=== PATIENT | female | born 2000 | race Two or more races ===

== ENCOUNTER 2023-12-12 14:13 | Inpatient (IN) | payer MEDICAID, OTHER ==
[~2023-12-12] VITALS: Ht 175.3 cm; Wt 129.4 kg
[2023-12-12 15:01] LABS: Basophils # (auto) 0.1 10 ^3/uL (0-0.2); Basophils % (auto) 0.7 % (0.0-2.0); Eosinophils # (auto) 0.2 10 ^3/uL (0-0.8); Eosinophils % (auto) 2.4 % (0.0-7.0); Hematocrit 39.9 % (36.0-46.0); Hemoglobin 13.7 g/dL (12.2-16.2); Lymphocytes % (auto) 38.9 % (10.0-50.0); Mean Corpuscular Hemoglobin 29.3 pg (28.0-32.0); Mean Corpuscular Hgb Conc. 34.2 g/dL (32.0-36.0); Mean Corpuscular Volume 85.7 fL (80.0-100.0); Monocytes # (auto) 0.5 10 ^3/uL (0-1.3); Monocytes % (auto) 6.3 % (0.0-12.0); Neutrophils % (auto) 51.7 % (37.0-80.0); Nucleated Red Blood Cells % 0.1 %; Red Blood Cells 4.66 10^6/uL (4.0-5.20); Red Cell Distribution Width 12.9 % (11.8-14.3); White Blood Cell 7.7 10^3/uL (4.4-10.8)
[2023-12-12 15:09] LABS: Alanine Aminotransferase 117 U/L (7-40); Albumin 4.4 g/dL (3.2-4.8); Alkaline Phosphatase 201 U/L (46-116); Anion Gap 8 (5-15); Aspartate Aminotransferase 119 U/L (13-40); BUN/Creatinine Ratio 8.3 (10.0-20.0); Bilirubin, Total 0.8 mg/dL (0.2-1.0); Blood Urea Nitrogen 6 mg/dL (9-23); Calcium 10.1 mg/dL (8.7-10.4); Carbon Dioxide 27 mmol/L (20-30); Chloride 105 mmol/L (98-107); Glucose 96 mg/dL (74-106); Lipase 66 U/L (12-53); Potassium 4.2 mmol/L (3.5-5.1); Sodium 140 mmol/L (136-145)
[2023-12-12] MEDS: MORPHINE SULFATE 4 MG/ML SYR/VIAL IV ONE ×2 (15:45→20:26)
[2023-12-12] MEDS: SODIUM CHLORIDE 0.9% 1,000 ML IVB ONE (16:02)
[2023-12-12] MEDS: ONDANSETRON HCL 4 MG/2 ML VIAL IV ONE ×2 (16:02→20:00)
[2023-12-12 16:26] LABS: Urine Bacteria None Seen /hpf (None Seen)
[2023-12-12 16:29] VITALS: PULSE 81; RESP 16; O2SAT 96
[2023-12-12 16:35] LABS: Urine Blood Negative /uL (Negative); Urine Clarity Clear (Clear); Urine Color Yellow (Yellow); Urine Mucus FEW (None Seen); Urine Protein, UAD TRACE (Negative); Urine Specific Gravity 1.022 (1.001-1.035); Urine Urobilinogen 3 mg/dL (Negative); Urine WBC 2 /hpf (0 - 5)
[2023-12-12 20:00] VITALS: PULSE 68; RESP 13; O2SAT 99
[2023-12-12] MEDS ORDERED: ACETAMINOPHEN 325 MG TAB PO PRN (21:00)
[2023-12-13 04:14] LABS: Hematocrit 37.5 % (36.0-46.0); Mean Corpuscular Hemoglobin 29.8 pg (28.0-32.0); Mean Corpuscular Hgb Conc. 34.6 g/dL (32.0-36.0); Red Blood Cells 4.35 10^6/uL (4.0-5.20); Red Cell Distribution Width 12.8 % (11.8-14.3); White Blood Cell 4.2 10^3/uL (4.4-10.8)
[2023-12-13 04:17] LABS: Basophils % (manual) 0 (0.0-2.0); Blast Cells 0; Metamyelocytes % 0; Myelocytes % 0; Promyelocytes % 0; Reactive Lymphocytes 0
[2023-12-13 04:31] LABS: Alanine Aminotransferase 450 U/L (7-40); Albumin 4.1 g/dL (3.2-4.8); Alkaline Phosphatase 219 U/L (46-116); Anion Gap 6 (5-15); Aspartate Aminotransferase 647 U/L (13-40); Bilirubin, Total 1.4 mg/dL (0.2-1.0); Calcium 9.6 mg/dL (8.7-10.4); Carbon Dioxide 25 mmol/L (20-30); Chloride 109 mmol/L (98-107); Glucose 85 mg/dL (74-106); Potassium 3.8 mmol/L (3.5-5.1); Sodium 140 mmol/L (136-145); Total Protein 6.7 g/dL (5.7-8.2)
[2023-12-13 04:40] LABS: BUN/Creatinine Ratio 8.2 (10.0-20.0); Blood Urea Nitrogen < 5 mg/dL (9-23)
[2023-12-13 06:05] LABS: Band Neutrophils % (manual) 1; Eosinophils % (manual) 1 (0-7); Lymphocytes % (manual) 62 (10.0-50.0); Monocytes % (manual) 8 (0-12); Platelet Estimate Adequate; RBC Morphology Normal
[2023-12-13 07:29] VITALS: PULSE 72; RESP 17; O2SAT 99
[2023-12-13] MEDS: HYDROcodone-ACET 5/325MG TAB PO PRN (07:29)
[2023-12-13 10:11] LABS: Amphetamine Screen, Urine Neg (NEGATIVE)
[2023-12-13 10:12] LABS: Barbiturate Scree,Urine Neg (NEGATIVE); Benzodiazephine Screen, Urine Neg (NEGATIVE); Cannabinoid Screen, Urine Neg (NEGATIVE); Cocaine Screen, Urine Neg (NEGATIVE); Opiate Scree,Urine Neg (NEGATIVE); Phencyclidine Screen, Urine Neg (NEGATIVE)
[2023-12-13 10:24] VITALS: BP 108/62; PULSE 76; PULSE 79; RESP 16; RESP 18; TEMP 97.6; O2SAT 97; O2SAT 99
[2023-12-13 10:34] LABS: INR 1.04 (0.9-1.15); Partial Thromboplastin Time 23.9 SEC (24.5-34.5)
[2023-12-13 10:38] VITALS: BP 95/63; PULSE 79; RESP 16; TEMP 97.9; O2SAT 97
[2023-12-13] MEDS ORDERED: NORPTMEDS PO (10:54)
[2023-12-13 12:01] LABS: Bilirubin, Direct 0.9 mg/dL (<0.3)
[2023-12-13 12:17] LABS: Hepatitis B Surface Antigen Negative (Negative)
[2023-12-13] MEDS: PANTOPRAZOLE 40 MG/10 ML VIAL INJ IV ONE (12:31)
[2023-12-13 12:37] LABS: Hepatitis A Ab IgM Negative
[2023-12-13 12:38] LABS: Hepatitis B Core IgM Negative; Hepatitis C Antibody Negative (Negative)
[2023-12-13 13:00] VITALS: BP 108/62; PULSE 46; RESP 18; TEMP 97.6; O2SAT 99
[2023-12-13] MEDS: ERGOCALCIFEROL 50,000 UNIT(1.25MG) CAP PO SCH (20:56)
[2023-12-13 21:00] VITALS: BP 100/57; PULSE 60; RESP 16; TEMP 97.9; O2SAT 98
[2023-12-14 05:00] VITALS: BP 105/66; PULSE 76; RESP 16; TEMP 98; O2SAT 96
[2023-12-14 06:16] LABS: Hematocrit 36.8 % (36.0-46.0); Hemoglobin 12.7 g/dL (12.2-16.2); Mean Corpuscular Hemoglobin 29.9 pg (28.0-32.0); Mean Corpuscular Hgb Conc. 34.6 g/dL (32.0-36.0); Mean Corpuscular Volume 86.4 fL (80.0-100.0); Red Blood Cells 4.26 10^6/uL (4.0-5.20)
[2023-12-14 06:21] LABS: Chloride 107 mmol/L (98-107); Potassium 3.8 mmol/L (3.5-5.1); Sodium 140 mmol/L (136-145)
[2023-12-14 06:22] LABS: Anion Gap 12 (5-15); Carbon Dioxide 21 mmol/L (20-30)
[2023-12-14 06:23] LABS: Calcium 9.6 mg/dL (8.7-10.4)
[2023-12-14 06:27] LABS: Glucose 78 mg/dL (74-106)
[2023-12-14 06:31] LABS: BUN/Creatinine Ratio 7.9 (10.0-20.0); Blood Urea Nitrogen < 5 mg/dL (9-23)
[2023-12-14 06:36] LABS: Band Neutrophils % (manual) 0; Blast Cells 0; Metamyelocytes % 0; Myelocytes % 0; Promyelocytes % 0; Reactive Lymphocytes 0
[2023-12-14 07:55] LABS: Alanine Aminotransferase 501 U/L (7-40); Albumin 3.8 g/dL (3.2-4.8); Alkaline Phosphatase 230 U/L (46-116); Anion Gap 6 (5-15); Aspartate Aminotransferase 414 U/L (13-40); BUN/Creatinine Ratio 7.8 (10.0-20.0); Bilirubin, Total 1.6 mg/dL (0.2-1.0); Blood Urea Nitrogen 5 mg/dL (9-23); Calcium 9.5 mg/dL (8.5-10.1); Carbon Dioxide 25 mmol/L (20-30); Chloride 108 mmol/L (98-107); Glucose 77 mg/dL (74-106); Potassium 3.8 mmol/L (3.5-5.1); Sodium 139 mmol/L (136-145); Total Protein 6.3 g/dL (5.7-8.2)
[2023-12-14 08:00] VITALS: BP 99/69; PULSE 65; RESP 16; TEMP 98; O2SAT 97
[2023-12-14 08:34] LABS: Basophils % (manual) 1 (0.0-2.0); Eosinophils % (manual) 3 (0-7); Lymphocytes % (manual) 54 (10.0-50.0); Monocytes % (manual) 7 (0-12); Platelet Estimate Adequate
[2023-12-14] MEDS: PANTOPRAZOLE 40 MG/10 ML VIAL INJ IV SCH (09:15)
[2023-12-14] MEDS: SODIUM CHLORIDE 0.9% 1,000 ML IV SCH (09:30)
[2023-12-14] MEDS: ENOXAPARIN SOD 40 MG/0.4 ML SYRINGE SC SCH (10:49)
[2023-12-14 12:00] VITALS: BP 103/61; PULSE 65; RESP 16; TEMP 98; O2SAT 97
[2023-12-14 17:00] VITALS: BP 98/58; PULSE 65; RESP 16; TEMP 98.1; O2SAT 99
[2023-12-14] MEDS: CIPROFLOXACIN HCL 500 MG TAB PO SCH (17:39)
[2023-12-14 21:00] VITALS: BP 101/59; PULSE 59; RESP 20; TEMP 98.2; O2SAT 98
[2023-12-15 01:00] VITALS: BP 103/57; PULSE 62; RESP 20; TEMP 97.9; O2SAT 97
[2023-12-15 05:00] VITALS: BP 106/62; PULSE 64; RESP 20; TEMP 98.3; O2SAT 96
[2023-12-15 06:45] LABS: Alanine Aminotransferase 413 U/L (7-40); Albumin 3.7 g/dL (3.2-4.8); Alkaline Phosphatase 247 U/L (46-116); Anion Gap 8 (5-15); Aspartate Aminotransferase 264 U/L (13-40); Calcium 9.3 mg/dL (8.5-10.1); Carbon Dioxide 23 mmol/L (20-30); Chloride 107 mmol/L (98-107); Glucose 76 mg/dL (74-106); Potassium 3.6 mmol/L (3.5-5.1); Sodium 138 mmol/L (136-145)
[2023-12-15 06:46] LABS: Bilirubin, Total 1.7 mg/dL (0.2-1.0); Total Protein 6.2 g/dL (5.7-8.2)
[2023-12-15 06:54] LABS: BUN/Creatinine Ratio 8.9 (10.0-20.0); Blood Urea Nitrogen < 5 mg/dL (9-23)
[2023-12-15 08:38] VITALS: BP 105/59; PULSE 61; RESP 20; TEMP 97.9; O2SAT 95
[2023-12-15 12:53] VITALS: BP 104/67; PULSE 60; RESP 20; TEMP 98; O2SAT 98
[2023-12-15 13:08] LABS: Anti-Nuclear Antibody Direct Negative (Negative)
[2023-12-15] MEDS: ONDANSETRON HCL 4 MG/2 ML VIAL IV PRN (16:48)
[2023-12-15 17:23] VITALS: BP 105/66; PULSE 71; RESP 20; TEMP 98.2; O2SAT 96
[2023-12-15 21:00] VITALS: BP 117/70; PULSE 73; RESP 20; TEMP 98.2; O2SAT 95
[2023-12-16] VITALS (7 sets, daily range): BP systolic 96–125; BP diastolic 56–67; PULSE 66–94; RESP 18–20; TEMP 98–98.6; O2SAT 95–98
[2023-12-16 05:59] LABS: Hemoglobin 12.5 g/dL (12.2-16.2); Mean Corpuscular Hgb Conc. 34.8 g/dL (32.0-36.0); Mean Corpuscular Volume 86.4 fL (80.0-100.0); Red Blood Cells 4.17 10^6/uL (4.0-5.20); Red Cell Distribution Width 12.7 % (11.8-14.3); White Blood Cell 4.3 10^3/uL (4.4-10.8)
[2023-12-16 06:01] LABS: Band Neutrophils % (manual) 0; Basophils % (manual) 0 (0.0-2.0); Blast Cells 0; Metamyelocytes % 0; Myelocytes % 0; Promyelocytes % 0; Reactive Lymphocytes 0
[2023-12-16 06:05] LABS: INR 1.08 (0.9-1.15); Partial Thromboplastin Time 26.8 SEC (24.5-34.5); Prothrombin Time 11.4 sec (9.3-11.8)
[2023-12-16 06:17] LABS: Alanine Aminotransferase 299 U/L (7-40); Albumin 3.7 g/dL (3.2-4.8); Alkaline Phosphatase 225 U/L (46-116); Anion Gap 10 (5-15); Aspartate Aminotransferase 104 U/L (13-40); Calcium 9.3 mg/dL (8.5-10.1); Carbon Dioxide 23 mmol/L (20-30); Chloride 106 mmol/L (98-107); Glucose 75 mg/dL (74-106); Potassium 3.6 mmol/L (3.5-5.1); Sodium 139 mmol/L (136-145)
[2023-12-16 06:18] LABS: Bilirubin, Total 0.8 mg/dL (0.2-1.0); Total Protein 6.1 g/dL (5.7-8.2)
[2023-12-16 06:22] LABS: BUN/Creatinine Ratio 8.2 (10.0-20.0); Blood Urea Nitrogen < 5 mg/dL (9-23)
[2023-12-16 07:44] LABS: Eosinophils % (manual) 1 (0-7); Lymphocytes % (manual) 42 (10.0-50.0); Monocytes % (manual) 14 (0-12); Platelet Estimate Adequate; Smudge Cells 1 /100 WBC
[2023-12-16 16:23] LABS: Magnesium 1.6 mg/dL (1.6-2.6)
[2023-12-16 16:25] LABS: Phosphorus 4.6 mg/dL (2.4-5.1)
[2023-12-17] VITALS (8 sets, daily range): BP systolic 99–114; BP diastolic 48–72; PULSE 72–123; RESP 16–20; TEMP 97.5–98.3; O2SAT 96–99
[2023-12-17 05:38] LABS: Hematocrit 36.9 % (36.0-46.0); Hemoglobin 12.5 g/dL (12.2-16.2); Mean Corpuscular Hemoglobin 29.5 pg (28.0-32.0); Mean Corpuscular Hgb Conc. 33.7 g/dL (32.0-36.0); Mean Corpuscular Volume 87.5 fL (80.0-100.0); Red Blood Cells 4.22 10^6/uL (4.0-5.20); Red Cell Distribution Width 13.1 % (11.8-14.3); White Blood Cell 4.9 10^3/uL (4.4-10.8)
[2023-12-17 05:51] LABS: Band Neutrophils % (manual) 0; Basophils % (manual) 0 (0.0-2.0); Blast Cells 0; Eosinophils % (manual) 0 (0-7); Metamyelocytes % 0; Myelocytes % 0; Promyelocytes % 0; Reactive Lymphocytes 0
[2023-12-17 05:52] LABS: Anion Gap 13 (5-15); Carbon Dioxide 20 mmol/L (20-30); Chloride 105 mmol/L (98-107); Sodium 138 mmol/L (136-145)
[2023-12-17 05:53] LABS: Calcium 9.5 mg/dL (8.7-10.4)
[2023-12-17 05:58] LABS: BUN/Creatinine Ratio 8.1 (10.0-20.0); Blood Urea Nitrogen 5 mg/dL (9-23); Glucose 59 mg/dL (74-106)
[2023-12-17 06:18] LABS: Lymphocytes % (manual) 64 (10.0-50.0); Monocytes % (manual) 4 (0-12); Platelet Estimate Adequate
[2023-12-17 12:06] LABS: Actin (Smooth Muscle) Antibody 5 Units (0-19)
[2023-12-17] MEDS: ceFAZolin 2 GM/D5W50ml 50 ML IV ONE (14:58)
[2023-12-17] MEDS ORDERED: fentaNYL CITRATE 100 MCG/2 ML VL ONE (16:04)
[2023-12-17] MEDS ORDERED: MEPERIDINE HCL (50 MG/ML) 1 ML VIAL ONE (16:04)
[2023-12-17] MEDS ORDERED: MIDAZOLAM HCL 2MG/2ML 2ml VIAL (1mg/ml) ONE (16:04)
[2023-12-17] MEDS: LIDOCAINE 2% JELLY 11ml (GLYDO) ONE (16:08)
[2023-12-17] MEDS ORDERED: DexAMETHasone SOD PHOS 10MG/1ML VIAL INJ ONE (16:30)
[2023-12-17] MEDS ORDERED: PROPOFOL 10 MG/ML 20 ML IV ONE (16:30)
[2023-12-17] MEDS ORDERED: ONDANSETRON HCL 4 MG/2 ML VIAL ONE (16:31)
[2023-12-17] MEDS ORDERED: ONDANSETRON HCL 4 MG/2 ML VIAL IV PRN (17:00)
[2023-12-17] MEDS ORDERED: HYDROmorphone HCL 2 MG/ML VL/or syr IV PRN (17:00)
[2023-12-17] MEDS ORDERED: ONDANSETRON HCL 4 MG/2 ML VIAL IV ONE (17:30)
[2023-12-17] MEDS ORDERED: MORPHINE SULFATE 4 MG/ML SYR/VIAL IV PRN (17:30)
[2023-12-17] MEDS ORDERED: MIDAZOLAM HCL 2MG/2ML 2ml VIAL (1mg/ml) IV PRN (17:30)
[2023-12-17] MEDS ORDERED: ePHEDrine SULFATE 50 MG/ML AMP IV PRN (17:30)
[2023-12-17] MEDS: HYDROmorphone HCL 2 MG/ML VL/or syr IV PRN (17:37)
[2023-12-17] MEDS: HYDROmorphone HCL 2 MG/ML VL/or syr ONE (17:44)
[2023-12-17] MEDS: D5W/SOD CHL 0.45%/KCL 20MEQ 1,000 ML IV SCH (18:25)
[2023-12-17] MEDS: metroNIDAZOLE 500MG/100ML 100 ML IV SCH (22:00)
[2023-12-17] MEDS: ceFAZolin 1GM/50ML 50 ML IV SCH (22:02)
[2023-12-18 01:00] VITALS: BP 111/66; PULSE 89; RESP 18; TEMP 98.2; O2SAT 93
[2023-12-18 05:00] VITALS: BP 104/58; PULSE 73; RESP 20; TEMP 98.1; O2SAT 92
[2023-12-18 06:12] LABS: Basophils # (auto) 0 10 ^3/uL (0-0.2); Basophils % (auto) 0.2 % (0.0-2.0); Eosinophils # (auto) 0 10 ^3/uL (0-0.8); Eosinophils % (auto) 0.1 % (0.0-7.0); Hematocrit 38.6 % (36.0-46.0); Hemoglobin 13.3 g/dL (12.2-16.2); Lymphocytes # (auto) 1.5 10 ^3/uL (0.4-5.4); Lymphocytes % (auto) 39.9 % (10.0-50.0); Mean Corpuscular Hemoglobin 30.9 pg (28.0-32.0); Mean Corpuscular Hgb Conc. 34.5 g/dL (32.0-36.0); Mean Corpuscular Volume 89.5 fL (80.0-100.0); Monocytes # (auto) 0.1 10 ^3/uL (0-1.3); Monocytes % (auto) 2.4 % (0.0-12.0); Neutrophils # (auto) 2.2 10 ^3/uL (1.6-8.6); Neutrophils % (auto) 57.4 % (37.0-80.0); Nucleated Red Blood Cells % 0.1 %; Red Blood Cells 4.32 10^6/uL (4.0-5.20); Red Cell Distribution Width 12.7 % (11.8-14.3); White Blood Cell 3.9 10^3/uL (4.4-10.8)
[2023-12-18 06:21] LABS: Anion Gap 8 (5-15); Carbon Dioxide 20 mmol/L (20-30); Chloride 106 mmol/L (98-107); Potassium 4.2 mmol/L (3.5-5.1); Sodium 134 mmol/L (136-145)
[2023-12-18 06:22] LABS: Calcium 9.8 mg/dL (8.7-10.4)
[2023-12-18 06:27] LABS: Glucose 147 mg/dL (74-106)
[2023-12-18 06:30] LABS: BUN/Creatinine Ratio 7.2 (10.0-20.0); Blood Urea Nitrogen < 5 mg/dL (9-23)
[2023-12-18 07:45] VITALS: RESP 16
[2023-12-18 08:51] VITALS: BP 106/65; PULSE 84; RESP 20; TEMP 97.9; O2SAT 94
[2023-12-18] MEDS: PANTOPRAZOLE 40 MG/10 ML VIAL INJ IV SCH (09:07)
[2023-12-18 12:49] VITALS: BP 99/60; PULSE 57; RESP 20; TEMP 98.3; O2SAT 94
[2023-12-18] MEDS ORDERED: PANT40T PO (13:08)
[2023-12-18] MEDS ORDERED: ACET-1882 PO (13:08)
[2023-12-18] MEDS ORDERED: MET500T PO (13:08)
[2023-12-18] MEDS ORDERED: ERGO1CAP23 PO (13:08)
[2023-12-18] MEDS ORDERED: LEVO500T91 PO (13:08)
[2023-12-18 14:25] LABS: Alanine Aminotransferase 190 U/L (7-40); Albumin 4.4 g/dL (3.2-4.8); Alkaline Phosphatase 190 U/L (46-116); Anion Gap 10 (5-15); Aspartate Aminotransferase 54 U/L (13-40); Bilirubin, Total 0.6 mg/dL (0.2-1.0); Calcium 10.3 mg/dL (8.7-10.4); Carbon Dioxide 22 mmol/L (20-30); Chloride 105 mmol/L (98-107); Glucose 149 mg/dL (74-106); Potassium 3.8 mmol/L (3.5-5.1); Sodium 137 mmol/L (136-145); Total Protein 7.6 g/dL (5.7-8.2)
[2023-12-18 14:29] LABS: BUN/Creatinine Ratio 7.1 (10.0-20.0); Blood Urea Nitrogen < 5 mg/dL (9-23)
[2023-12-18] MEDS: metroNIDAZOLE 500 MG TAB PO ONE (14:59)
== END 2023-12-18 16:25 | disposition home or self-care (01) | DRG 263 ==
LOC: ER 14:13 → OVERFLOW 21:47 → WEST WING 12-13 10:20
PROVIDERS: ADMIT Internal Medicine; ATTEND Internal Medicine
PROC: 0FT44ZZ Resection of Gallbladder, Percutaneous Endoscopic Approach (ICD-10-PCS; principal; 2023-12-17 16:02)
DX: K80.20 Calculus of gallbladder without cholecystitis without obstruction (principal); E66.01 Morbid (severe) obesity due to excess calories; F17.210 Nicotine dependence, cigarettes, uncomplicated; Z68.41 Body mass index [BMI] 40.0-44.9, adult
CPT/HCPCS: 36415; 74181; 76705; 80048; 80053; 80074; 80307; 81001; 82247; 82248; 82306; 82607; 83036; 83690; 83735; 84100; 84443; 84702; 85007; 85025; 85027; 85610; 85730; 86038; 86850; 86900; 86901; G0378; J1100; J2250; J2405; J2470; J2704; J3490